=== PATIENT | male | born 2000 | race Two or more races ===

== ENCOUNTER → 2024-01-31 | Emergency (ER) | payer OTHER ==
[~2024-01-31] VITALS: Ht 170.2 cm; Wt 63.5 kg
[~2024-01-31] MED LIST: 0.9 % SODIUM CHLORIDE 1,000 ML IV ONE; ACTIVATED CHARCOAL PO ONE; ONDANSETRON HCL 2 MG/ML VIAL IV ONE; PIPERACILLIN/TAZOBACTAM SODIUM 3.375 GM VIAL IV SCH
[2024-01-31 14:40] LABS: HEMATOCRIT 43.4 % (39.0-48.0); HEMOGLOBIN 15.1 g/dL (13-16.00); MEAN CELL VOLUME 83.8 fL (80.0-100.00); MEAN CORPUSCULAR HEMOGLOBIN 29.2 pg (27.00-32.0); MEAN CORPUSCULAR HGB CONC 34.8 g/dl (32.0-36.0); PLATELET COUNT 320 K/uL (150-450); RED BLOOD COUNT 5.18 M/uL (4.00-6.00)
[2024-01-31 14:53] LABS: INR 1.08; PARTIAL THROMBOPLASTIN TIME 24.1 SECONDS (22.0-34.0); PROTHROMBIN TIME 11.7 SECONDS (9.0-11.5)
[2024-01-31 14:59] LABS: ALBUMIN 4.3 gm/dL (3.4-5.0); BILIRUBIN TOTAL 0.57 mg/dL (0.3-1.2); CALCIUM 9.8 mg/dL (8.5-10.1); CREATININE SERUM 0.98 mg/dL (0.70-1.30); GFR 95.64; POTASSIUM 3.9 mEq/L (3.5-5.1); TOTAL PROTEIN 8.3 gm/dL (6.4-8.2)
[2024-01-31 16:02] LABS: URINE APPEARANCE Clear; URINE BILIRRUBIN Negative (NEGATIVE); URINE BLOOD Negative; URINE COLOR Yellow; URINE GLUCOSE Negative (NEGATIVE); URINE LEUKOCYTE Negative; URINE NITRATE Negative; URINE PROTEIN Negative (NEGATIVE); URINE UROBILINOGEN 0.2 E.U./dl
[2024-01-31 16:06] LABS: URINE WBC 1.8 uL (0.0-23.2)
[2024-01-31 16:12] LABS: URINE BACTERIA 2.4 uL (0.0-1933); URINE KETONE 40 (NEGATIVE); URINE RBC 1.4 uL (0.0-20.8)
[2024-01-31 16:15] LABS: COCAINE NEGATIVE (NEGATIVE); METHADONE NEGATIVE (NEGATIVE); OPIATES NEGATIVE (NEGATIVE); THC ( Cannabinoids) NEGATIVE (NEGATIVE)
[2024-02-01 08:16] VITALS: BP 108/85; O2SAT 99
== END | disposition designated cancer center or children's hospital (05) ==
LOC: ER 13:13
PROVIDERS: General Practice
DX: T45.0X2A Poisoning by antiallergic and antiemetic drugs, intentional self-harm, initial encounter (principal); Z20.822 Contact with and (suspected) exposure to COVID-19
CPT/HCPCS: 36415; 71045; 71250; 74176; 93005; 96365; 99285; J2405; J2543; J7030